=== PATIENT | male | born 1985 | race Caucasian/White ===

== ENCOUNTER 2020-12-25 16:54 | Observation (INO) ==
[2020-12-25] MEDS ORDERED: ONDANSETRON 4 MG/2 ML VIAL IV PRN (19:40)
[2020-12-25] MEDS ORDERED: guaiFENesin/DM ER 600-30 MG TABLET PO PRN (19:40)
[2020-12-25] MEDS ORDERED: NICOTINE 21 MG/24 HR PATCH TRANSDERM PRN (19:40)
[2020-12-25] MEDS ORDERED: diphenhydrAMINE CAP 25 MG CAPSULE PO PRN (19:40)
[2020-12-25] MEDS ORDERED: SIMETHICONE CHEW 125 MG TABLET PO PRN (19:40)
[2020-12-25] MEDS ORDERED: DEXTROSE 50% 25 GM/50 ML VIAL IV PRN (19:40)
[2020-12-25] MEDS ORDERED: GLUCAGON 1 MG VIAL IM PRN (19:40)
[2020-12-25] MEDS ORDERED: ALUMINUM/MAGNES/SIMETH MAX STR 30 ML UDCUP PO PRN (19:40)
[2020-12-25] MEDS ORDERED: ZALEPLON 5 MG CAPSULE PO PRN (19:40)
[2020-12-25] MEDS ORDERED: hydrALAZINE 20 MG/1 ML VIAL IV PRN (19:40)
[2020-12-25] MEDS ORDERED: DOCUSATE SODIUM 100 MG CAPSULE PO PRN (19:40)
[2020-12-25] MEDS ORDERED: CALCIUM CARBONATE CHEW 500 MG TABLET PO PRN (19:40)
[2020-12-25] MEDS ORDERED: LACTULOSE 20 GM/30 ML UDCUP PO PRN (19:40)
[2020-12-25] MEDS ORDERED: amLODIPine 10 MG TABLET PO ONE (19:43)
[2020-12-25 19:46] LABS: Basophils % 0.5 % (0.0-0.8); Hematocrit 48.9 VOL% (42.0-52.0); Hemoglobin 15.6 GM/DL (14.0-18.0); Immature Granulocytes % 0.2 %; Immature Granulocytes Absolute 0.01 #; Lymphocytes # 1.6 10*3/uL (1.4-4.0); Mean Corpuscular HGB Conc 31.9 GM/DL (32-36); Mean Corpuscular Volume 92.4 FL (87-102); Mean Platelet Volume 9.9 FL (9.6-12.0); Monocytes % 9.7 % (1.7-12.7); Neutrophils % 64.6 % (38.7-73.9); Platelet Count 234 T/CUMM (130-400); Red Blood Count 5.29 MC/CUMM (3.8-5.5); Red Cell Distribution Width 12.9 % (9.3-17.3); White Blood Count 6.3 T/CUMM (4-12)
[2020-12-25 20:09] LABS: Calcium 8.7 MG/DL (8.5-10.1); Osmolality,Calculated 280.3 MOS/KG (273-304); Potassium 3.9 MMOL/L (3.5-5.1)
[2020-12-25] MEDS: ENOXAPARIN 40 MG/0.4 ML SYRINGE SUBCUT SCH (21:26)
[2020-12-25] MEDS: ACETAMINOPHEN 325 MG TABLET PO PRN (21:30)
[2020-12-26] MEDS: ALBUTEROL 2.5 MG/3 ML NEB RESP TX SCH ×4 (01:40→19:14)
[2020-12-26 06:05] LABS: Basophils % 0.5 % (0.0-0.8); Eosinophils # 0.1 10*3/uL (0.0-0.87); Eosinophils % 2.4 % (0.00-10.9); Hematocrit 46.5 VOL% (42.0-52.0); Hemoglobin 15.1 GM/DL (14.0-18.0); Immature Granulocytes % 0.2 %; Immature Granulocytes Absolute 0.01 #; Lymphocytes # 1.7 10*3/uL (1.4-4.0); Lymphocytes % 29.7 % (21.2-54.2); Mean Corpuscular HGB Conc 32.5 GM/DL (32-36); Mean Corpuscular Volume 90.8 FL (87-102); Mean Platelet Volume 9.8 FL (9.6-12.0); Monocytes % 13.7 % (1.7-12.7); Neutrophils % 53.5 % (38.7-73.9); Platelet Count 208 T/CUMM (130-400); Red Blood Count 5.12 MC/CUMM (3.8-5.5); Red Cell Distribution Width 12.9 % (9.3-17.3); White Blood Count 5.9 T/CUMM (4-12)
[2020-12-26 06:24] LABS: Calcium 8.9 MG/DL (8.5-10.1); Potassium 3.5 MMOL/L (3.5-5.1)
[2020-12-26] MEDS: amLODIPine 10 MG TABLET PO SCH (08:50)
[2020-12-26] MEDS: predniSONE 10 MG TABLET PO SCH ×2 (08:51→20:35)
[2020-12-26] MEDS: PANTOPRAZOLE 40 MG TABLET PO SCH (08:51)
[2020-12-26] MEDS ORDERED: FUROSEMIDE 40 MG TABLET PO SCH (09:00)
[2020-12-26] MEDS: BUDESONIDE/FORMOTEROL 160-4.5 INHALER 6 GM INH SCH ×2 (10:33→20:37)
[2020-12-26] MEDS: AZITHROMYCIN 250 MG TABLET PO SCH (13:33)
[2020-12-26] MEDS: ENOXAPARIN 40 MG/0.4 ML SYRINGE SUBCUT SCH (20:35)
[2020-12-27] MEDS: ALBUTEROL 2.5 MG/3 ML NEB RESP TX SCH ×4 (01:23→19:20)
[2020-12-27 06:25] LABS: Basophils % 0.3 % (0.0-0.8); Hematocrit 46.6 VOL% (42.0-52.0); Hemoglobin 15.7 GM/DL (14.0-18.0); Immature Granulocytes % 0.1 %; Immature Granulocytes Absolute 0.01 #; Lymphocytes % 14.4 % (21.2-54.2); Mean Corpuscular HGB Conc 33.7 GM/DL (32-36); Monocytes % 9.5 % (1.7-12.7); Neutrophils % 75.7 % (38.7-73.9); Platelet Count 235 T/CUMM (130-400); Red Blood Count 5.18 MC/CUMM (3.8-5.5); Red Cell Distribution Width 12.7 % (9.3-17.3); White Blood Count 7.1 T/CUMM (4-12)
[2020-12-27 06:50] LABS: Calcium 8.8 MG/DL (8.5-10.1); Osmolality,Calculated 279.5 MOS/KG (273-304); Potassium 4.2 MMOL/L (3.5-5.1)
[2020-12-27] MEDS: amLODIPine 10 MG TABLET PO SCH (09:04)
[2020-12-27] MEDS: AZITHROMYCIN 250 MG TABLET PO SCH (09:04)
[2020-12-27] MEDS: PANTOPRAZOLE 40 MG TABLET PO SCH (09:04)
[2020-12-27] MEDS: ACETAMINOPHEN 325 MG TABLET PO PRN (09:04)
[2020-12-27] MEDS: predniSONE 10 MG TABLET PO SCH (09:04)
[2020-12-27] MEDS: BUDESONIDE/FORMOTEROL 160-4.5 INHALER 6 GM INH SCH ×2 (09:05→20:59)
[2020-12-27 11:31] LABS: Risk Ratio 3.02; VLDL CHOLESTEROL 10.2 MG/DL
[2020-12-27] MEDS: LOSARTAN 25 MG TABLET PO SCH (12:35)
[2020-12-27] MEDS: carvediloL 3.125 MG TABLET PO SCH ×2 (12:35→16:35)
[2020-12-27] MEDS: ASPIRIN EC 81 MG TABLET PO SCH (12:35)
[2020-12-27] MEDS: ENOXAPARIN 40 MG/0.4 ML SYRINGE SUBCUT SCH (20:57)
[2020-12-28] MEDS: ALBUTEROL 2.5 MG/3 ML NEB RESP TX SCH ×4 (00:22→19:14)
[2020-12-28 06:01] LABS: Calcium 8.5 MG/DL (8.5-10.1); Osmolality,Calculated 280.4 MOS/KG (273-304); Potassium 3.5 MMOL/L (3.5-5.1)
[2020-12-28] MEDS: carvediloL 3.125 MG TABLET PO SCH ×2 (08:56→16:58)
[2020-12-28] MEDS: PANTOPRAZOLE 40 MG TABLET PO SCH (08:56)
[2020-12-28] MEDS: AZITHROMYCIN 250 MG TABLET PO SCH (08:56)
[2020-12-28] MEDS: LOSARTAN 25 MG TABLET PO SCH (08:56)
[2020-12-28] MEDS: ASPIRIN EC 81 MG TABLET PO SCH (08:56)
[2020-12-28] MEDS: BUDESONIDE/FORMOTEROL 160-4.5 INHALER 6 GM INH SCH ×2 (08:58→21:39)
[2020-12-28] MEDS: SPIRONOLACTONE 25 MG TABLET PO SCH (09:37)
[2020-12-28] MEDS ORDERED: MAGNESIUM SULF RIDER 2 GM in PREMIX 1 EACH IV PRN (15:11)
[2020-12-28] MEDS ORDERED: POTASSIUM CHLORIDE RIDER 10 MEQ in PREMIX 1 EACH IV PRN (15:11)
[2020-12-28] MEDS ORDERED: diphenhydrAMINE CAP 25 MG CAPSULE PO ONE (15:11)
[2020-12-28] MEDS ORDERED: DIAZEPAM 5 MG TABLET PO ONE (15:11)
[2020-12-28] MEDS ORDERED: LIDOCAINE 1% 20 ML VIAL ONE (15:18)
[2020-12-28] MEDS ORDERED: NITROGLYCERIN DRIP 50 MG/250 ML BOTTLE IV ONE (15:21)
[2020-12-28] MEDS ORDERED: VERAPAMIL 5 MG/2 ML VIAL ONE (15:21)
[2020-12-28] MEDS ORDERED: MIDAZOLAM 2 MG/2 ML VIAL ONE (15:47)
[2020-12-28] MEDS ORDERED: HYDROmorphone 2 MG/1 ML VIAL ONE (15:47)
[2020-12-28] MEDS ORDERED: ENOXAPARIN 30 MG/0.3 ML SYRINGE ONE (15:57)
[2020-12-28] MEDS ORDERED: ENOXAPARIN 60 MG/0.6 ML SYRINGE ONE (15:57)
[2020-12-28] MEDS ORDERED: NITROGLYCERIN SL 0.4 MG TABLET SL PRN (16:06)
[2020-12-28] MEDS: ENOXAPARIN 40 MG/0.4 ML SYRINGE SUBCUT SCH (21:39)
[2020-12-29] MEDS: ALBUTEROL 2.5 MG/3 ML NEB RESP TX SCH ×3 (01:55→13:42)
[2020-12-29 05:41] LABS: Basophils # 0.1 10*3/uL (0.0-0.2); Basophils % 0.8 % (0.0-0.8); Eosinophils % 0.3 % (0.00-10.9); Hematocrit 48.2 VOL% (42.0-52.0); Hemoglobin 15.3 GM/DL (14.0-18.0); Immature Granulocytes % 0.1 %; Immature Granulocytes Absolute 0.01 #; Lymphocytes # 2.6 10*3/uL (1.4-4.0); Lymphocytes % 36.1 % (21.2-54.2); Mean Corpuscular HGB Conc 31.7 GM/DL (32-36); Mean Corpuscular Volume 93.4 FL (87-102); Mean Platelet Volume 10.1 FL (9.6-12.0); Monocytes % 11.9 % (1.7-12.7); Neutrophils % 50.8 % (38.7-73.9); Platelet Count 257 T/CUMM (130-400); Red Blood Count 5.16 MC/CUMM (3.8-5.5); Red Cell Distribution Width 13.1 % (9.3-17.3); White Blood Count 7.3 T/CUMM (4-12)
[2020-12-29 06:09] LABS: Calcium 8.8 MG/DL (8.5-10.1); Osmolality,Calculated 276.7 MOS/KG (273-304); Potassium 3.9 MMOL/L (3.5-5.1)
[2020-12-29] MEDS ORDERED: ALBUTEROL/IPRATROPIUM 3 ML NEB RESP TX ONE (07:09)
[2020-12-29 08:28] VITALS: BP 145/88
[2020-12-29] MEDS ORDERED: carvediloL 6.25 MG TABLET PO SCH (09:12)
[2020-12-29] MEDS: AZITHROMYCIN 250 MG TABLET PO SCH (09:43)
[2020-12-29] MEDS: SPIRONOLACTONE 25 MG TABLET PO SCH (09:43)
[2020-12-29] MEDS: ASPIRIN EC 81 MG TABLET PO SCH (09:43)
[2020-12-29] MEDS: LOSARTAN 25 MG TABLET PO SCH (09:43)
[2020-12-29] MEDS: PANTOPRAZOLE 40 MG TABLET PO SCH (09:43)
[2020-12-29] MEDS: carvediloL 3.125 MG TABLET PO SCH (09:44)
[2020-12-29] MEDS: BUDESONIDE/FORMOTEROL 160-4.5 INHALER 6 GM INH SCH (10:34)
== END 2020-12-29 13:25 | disposition home or self-care (01) ==
LOC: N.TELES → SUATTDRO 18:39
PROVIDERS: ADMIT Internal Medicine; ATTEND Internal Medicine